=== PATIENT | female | born 1975 | race African-American/Black ===

== ENCOUNTER 2018-09-03 09:08 | Day surgery (SDC) | payer BC, OTHER ==
[2018-08-29 14:40] VITALS: BMI 27.6
[2018-09-03] MEDS ORDERED: PROPOFOL 20 ML ONE ×2 (09:59→10:51)
[2018-09-03 11:12] VITALS: TEMP 98.2
[2018-09-03 11:55] VITALS: BP 112/66; PULSE 72
== END 2018-09-03 12:06 | disposition home or self-care (01) ==
LOC: FASU-ENDO 09:08
PROVIDERS: ATTEND Internal Medicine Gastroenterology
PROC: 0DJD8ZZ Inspection of Lower Intestinal Tract, Via Natural or Artificial Opening Endoscopic (ICD-10-PCS; principal; 2018-09-03 10:40)
DX: Z12.11 Encounter for screening for malignant neoplasm of colon (principal)
CPT/HCPCS: 84703